=== PATIENT | female | born 1930 | race Caucasian/White ===

== ENCOUNTER 2016-09-04 10:16 | Day surgery (SDC) | payer MEDICARE, OTHER ==
[2016-08-23 10:55] LABS: HEMATOCRIT 40.1 % (36.0-47.0); HEMOGLOBIN 13.7 g/dL (12.0-15.5); MEAN CORPUSCULAR HEMOGLOBIN 31.3 pg (27.0-33.4); MEAN CORPUSCULAR HGB CONC 34.2 g/dL (32.0-36.0); MEAN CORPUSCULAR VOLUME 91 fl (80-97); RED BLOOD COUNT 4.39 10^6/uL (3.72-5.28); RED CELL DISTRIBUTION WIDTH 13.9 % (11.5-14.0); WHITE BLOOD COUNT 6.3 10^3/uL (4.0-10.5)
[2016-08-23 10:59] LABS: PROTHROMBIN TIME 12.6 SEC (11.4-15.4)
[2016-08-23 11:23] LABS: ANION GAP 13 (5-19); BLOOD UREA NITROGEN 14 mg/dL (7-20); CALCIUM 10.1 mg/dL (8.4-10.2); CARBON DIOXIDE 29 mmol/L (22-30); CHLORIDE 105 mmol/L (98-107); CREATININE RESULT 0.82 mg/dL (0.52-1.25); GLUCOSE 94 mg/dL (75-110); POTASSIUM 4.8 mmol/L (3.6-5.0); SODIUM 147.1 mmol/L (137-145)
--- NOTE | 2016-08-23 19:50 | EKG REPORT ---
SEVERITY:- ABNORMAL ECG - SINUS RHYTHM PROBABLE LEFT ATRIAL ABNORMALITY PROBABLE LEFT VENTRICULAR HYPERTROPHY : Confirmed by: Zen Montes MD 23-Aug-2016 19:50:13
[~2016-09-04 10:16] MED LIST: CEFAZOLIN 1 GM/D5W RTU 1 GM/50 ML RTUPB IV PRN; LIDOCAINE 0.5% INJ-PF (5 MG/ML) 50 ML SDV SUBCUT PRN; LIDOCAINE 2% INJ-PF (20 MG/ML) 10 ML AMPUL ONE; NORMAL SALINE 1000 ML (RENAL PATIENTS) IV PRN
[2016-09-04] MEDS ORDERED: SODIUM BICARBONATE 8.4% INJ 50 MEQ/50 ML DISP.SYRIN ONE (11:15)
[2016-09-04] MEDS ORDERED: LIDOCAINE 1%/EPINEPHRINE INJ 20 ML VIAL ONE (11:15)
[2016-09-04] MEDS ORDERED: MIDAZOLAM 2 MG/2 ML INJ ONE (12:50)
[2016-09-04] MEDS ORDERED: FENTANYL CITRATE INJ/PF 100 MCG/2 ML AMPUL ONE (12:50)
[2016-09-04] MEDS ORDERED: PROPOFOL INJ 200 MG/20 ML VIAL IV ONE (12:51)
[2016-09-04] MEDS ORDERED: EPHEDRINE SULFATE INJ 50 MG/1 ML AMPULE ONE (12:51)
[2016-09-04] MEDS ORDERED: DEXMEDETOMIDINE INJ 80 MCG/20 ML VIAL IV ONE (12:51)
[2016-09-04] MEDS ORDERED: PROMETHAZINE HCL INJ 25 MG/1 ML VIAL IV PRN ×2 (13:46)
[2016-09-04] MEDS ORDERED: OXYCODONE-ACETAMINOPHEN 5-325 MG TABLET PO PRN ×2 (13:46)
[2016-09-04] MEDS ORDERED: FENTANYL CITRATE INJ/PF 100 MCG/2 ML AMPUL IV PRN ×3 (13:46)
[2016-09-04] MEDS ORDERED: MEPERIDINE HCL/PF INJ 25 MG/1 ML DISP.SYRIN IV PRN (13:46)
[2016-09-04] MEDS ORDERED: DIPHENHYDRAMINE HCL 50 MG/ML VIAL IV PRN (13:46)
--- NOTE | 2016-09-04 14:46 | Operative Report ---
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 Margins were examined via frozen section SURGEON: QUINN NG ANESTHESIA: LMAC TISSUE REMOVED OR ALTERED: Squamous cell carcinoma of right lateral malleolus COMPLICATIONS: None ESTIMATED BLOOD LOSS: minimal PROCEDURE: Patient seen and was marked prior to being brought into the operating room. Patient was brought into the operating room and placed on the operating room table in a lateral decubitus position. Patient was then prepped with a Betadine scrub and Betadine solution and draped in a sterile and aseptic manner. The area was then marked. 12 O'clock was marked towards the knee 3 O'clock was marked towards the dorsal foot 6:00 was marked towards plantar foot 9:00 was marked towards Achilles tendon The area was then anesthetized with 1% lidocaine with epinephrine and bicarbonate for its anesthetic and hemostatic effects. The area was then excised and marked at 12:00. We had considered a primary closure but this would go against the natural relaxed skin tension lines. A primary closure would be too tight and would have increased chance of dehiscence. This will leave more of a scar so we decided to use a rotation flap reconstruction which would camouflage the scar better and take tension off of the closure so that would be less chances of complications. Then went ahead and outlined the flap and anesthetized it. Then incised the flap and developed a flap maintaining the subdermal plexus. Then we undermined 360 to allow for plate like scarring and minimize trap door deformity. Throughout the case hemostasis was achieved with the bipolar. Skin was closed with a interrupted horizontal mattress sutures stitch using [4- 0 Prolene] with knots being tied on the outside. We then applied tincture benzoin and Steri-Strips followed by a light pressure dressing with an Rodo wrap to support the foot and limit the amount of motion at the ankle joint to protect the flap. Patient was then reversed from anesthesia and taken to the [facility] for recovery. The patient tolerated well. There were no complications. Lesion size was approximately 1.2 x 1.5 cm please see pathology for actual size. Portions of this note may be dictated using [employer] voice recognition software. Occasional variations and spelling and vocabulary could be possible and are unintentional. Additionally, there is a chance that some errors may not be caught or corrected. Please notify the offer of any discrepancies noted or if any statements are unclear. Subjective: No complaints Objective: Vital signs stable afebrile No bleeding Dressing intact Assessment and plan: Doing well. Elevate the operative site. Resume medications. Take antibiotics for 1 day Follow-up Full instructions were given to the patient and family and they understand Portions of this note may be dictated using [employer] voice recognition software. Occasional variations and spelling and vocabulary could be possible and are unintentional. Additionally, there is a chance that some errors may not be caught or corrected. Please notify the offer of any discrepancies noted or if any statements are unclear.
--- NOTE | 2016-09-04 14:48 | PDOC DISCHARGE SUMMARY ---
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 Leave the steri-strip tapes on for 5 days, then removal. Then cleaning wound with peroxide and apply Neosporin/bacitracin 3 times per day. Antibiotics for 1 day, then discontinue. Elevate operative area to decrease swelling. Do not strain, or lift heavy objects. Call for excessive bleeding, increased temperature of 101, uncontrolled pain, or excessive nausea or vomiting. You may reach Dr. Torres through his office at [phone]. In the event of an emergency after hours, then contact Dr. Torres through [facility]. Return to the office for a postop check on . The time will be scheduled by the nursing staff of [facility] prior to discharge. Please give the patient a copy of their labs and EKG so they can bring this to their PMD. Thank you Portions of this note may be dictated using [employer] voice recognition software. Occasional variations and spelling and vocabulary could be possible and are unintentional. Additionally, there is a chance that some errors may not be caught or corrected. Please notify the offer of any discrepancies noted or if any statements are unclear. Discharge Diet: As Tolerated Discharge Activity: Keep Legs Elevated Report the Following to Your Physician Immediately: Unusual Bleeding, Redness, Swelling, Warmth
[2016-09-04 16:25] VITALS: BP 163/92
== END 2016-09-04 16:20 | disposition home or self-care (01) ==
LOC: OROUT 10:16
PROVIDERS: ATTEND Plastic Surgery
PROC: 0HBKXZZ Excision of Right Lower Leg Skin, External Approach (ICD-10-PCS; 2016-09-04)
PROC: 0HXKXZZ Transfer Right Lower Leg Skin, External Approach (ICD-10-PCS; principal; 2016-09-04 12:30)
DX: C44.722 Squamous cell carcinoma of skin of right lower limb, including hip (principal); I10 Essential (primary) hypertension; M19.90 Unspecified osteoarthritis, unspecified site; F17.210 Nicotine dependence, cigarettes, uncomplicated; Z96.642 Presence of left artificial hip joint; G43.909 Migraine, unspecified, not intractable, without status migrainosus; Z79.01 Long term (current) use of anticoagulants; Z88.5 Allergy status to narcotic agent; Z79.899 Other long term (current) drug therapy; Z79.891 Long term (current) use of opiate analgesic
CPT/HCPCS: 93005; 36415; 85027; 85610; 85730; 80048; 88305 ×2; 88331 ×2; 93010; 14020; J2250; J0690; J3490 ×3; J2704; 400; J3010

== ENCOUNTER 2017-04-16 10:55 | Day surgery (SDC) | payer MEDICARE, OTHER ==
[2017-03-26 12:12] LABS: HEMATOCRIT 41.3 % (36.0-47.0); HEMOGLOBIN 13.9 g/dL (12.0-15.5); HGB HCT DIFFERENCE 0.4; MEAN CORPUSCULAR HEMOGLOBIN 30.7 pg (27.0-33.4); MEAN CORPUSCULAR HGB CONC 33.7 g/dL (32.0-36.0); MEAN CORPUSCULAR VOLUME 91 fl (80-97); RED BLOOD COUNT 4.54 10^6/uL (3.72-5.28); RED CELL DISTRIBUTION WIDTH 14.4 % (11.5-14.0)
[2017-03-26 12:16] LABS: PROTHROMBIN TIME 12.7 SEC (11.4-15.4)
[2017-03-26 12:41] LABS: ANION GAP 13 (5-19); BLOOD UREA NITROGEN 20 mg/dL (7-20); CALCIUM 9.6 mg/dL (8.4-10.2); CARBON DIOXIDE 27 mmol/L (22-30); CHLORIDE 107 mmol/L (98-107); CREATININE RESULT 1.01 mg/dL (0.52-1.25); GLUCOSE 92 mg/dL (75-110); POTASSIUM 4.8 mmol/L (3.6-5.0); SODIUM 146.8 mmol/L (137-145)
--- NOTE | 2017-03-26 15:34 | EKG REPORT ---
SEVERITY:- ABNORMAL ECG - SINUS RHYTHM FIRST DEGREE AV BLOCK : Confirmed by: Nancy Mcintosh 26-Mar-2017 15:33:29
[~2017-04-16 10:55] MED LIST changes: +LACTATED RINGERS 1000 ML IV PRN; +LIDOCAINE 1%/EPINEPHRINE INJ 20 ML VIAL ONE; -LIDOCAINE 2% INJ-PF (20 MG/ML) 10 ML AMPUL ONE; -NORMAL SALINE 1000 ML (RENAL PATIENTS) IV PRN; +SODIUM BICARBONATE 8.4% INJ 50 MEQ/50 ML DISP.SYRIN ONE
[2017-04-16] MEDS ORDERED: MIDAZOLAM 2 MG/2 ML INJ ONE (13:49)
[2017-04-16] MEDS ORDERED: PROPOFOL INJ 200 MG/20 ML VIAL IV ONE (13:50)
[2017-04-16] MEDS ORDERED: DIPHENHYDRAMINE HCL 50 MG/ML VIAL IV PRN (14:34)
[2017-04-16] MEDS ORDERED: MEPERIDINE HCL/PF INJ 25 MG/1 ML DISP.SYRIN IV PRN (14:34)
[2017-04-16] MEDS ORDERED: FENTANYL CITRATE INJ/PF 100 MCG/2 ML AMPUL IV PRN ×3 (14:34)
[2017-04-16] MEDS ORDERED: PROMETHAZINE HCL INJ 25 MG/1 ML VIAL IV PRN ×2 (14:34)
--- NOTE | 2017-04-16 15:22 | Operative Report ---
Operative Report DATE OF SURGERY: 04/16/17 PREOPERATIVE DIAGNOSIS: Biopsy-proven squamous cell carcinoma in situ from the right lateral upper malleolus with positive lateral margins. POSTOPERATIVE DIAGNOSIS: Same OPERATION: Excision of squamous cell carcinoma of the right lateral upper malleolus with frozen section margin control and reconstruction with a O to S flap reconstruction SURGEON: QUINN NG ANESTHESIA: LMAC TISSUE REMOVED OR ALTERED: Squamous cell carcinoma COMPLICATIONS: None ESTIMATED BLOOD LOSS: Minimal PROCEDURE: Patient seen and was marked prior to being brought into the operating room. Patient was brought into the operating room and placed on the operating room table in a sloppy lateral decubitus position. Patient was then prepped with a Betadine scrub and Betadine solution and draped in a sterile and aseptic manner. The area was then marked. 12 O'clock was marked towards the knee 3 O'clock was marked towards the anterior ankle 6:00 was marked towards the sole of foot 9:00 was marked towards the Achilles tendon The area was then anesthetized with 1% lidocaine with epinephrine and bicarbonate for its anesthetic and hemostatic effects. The area was then excised and marked at 12:00. The specimen was sent for frozen section. The results came back that the deep and lateral margins were free. We had considered a primary closure but this would go against the natural relaxed skin tension lines. A primary closure would be too tight and would have increased chance of dehiscence. This will leave more of a scar so we decided to use a O to S flap reconstruction which would camouflage the scar better and take tension off of the closure so that would be less chances of complications. Then went ahead and outlined the flap and anesthetized it. Then incised the flap and developed a flap maintaining the subdermal plexus. Then we undermined 360 to allow for plate like scarring and minimize trap door deformity. Throughout the case hemostasis was achieved with the bipolar. We then sutured the flap into its new position using 4-0 Vicryl for the subcutaneous and deep dermis. Skin was closed with a running subcuticular suture stitch using 4-0 PDS with knots being tied on the outside. And 4-0 PDS suture was used for support and placed in the central area of the incision. We then applied tincture benzoin and Steri-Strips followed by a light pressure dressing. Patient was then reversed from anesthesia and taken to the [facility] for recovery. The patient tolerated well. There were no complications. Lesion size was approximately 1.8 cm x 0.9 cm please see pathology for actual size. Portions of this note may be dictated using [employer] voice recognition software. Occasional variations and spelling and vocabulary could be possible and are unintentional. Additionally, there is a chance that some errors may not be caught or corrected. Please notify the offer of any discrepancies noted or if any statements are unclear. Subjective: No complaints Objective: Vital signs stable afebrile No bleeding Dressing intact Assessment and plan: Doing well. Elevate the operative site. Resume medications. Take antibiotics for 1 day Follow-up Full instructions were given to the patient and family and they understand Portions of this note may be dictated using [employer] voice recognition software. Occasional variations and spelling and vocabulary could be possible and are unintentional. Additionally, there is a chance that some errors may not be caught or corrected. Please notify the offer of any discrepancies noted or if any statements are unclear.
--- NOTE | 2017-04-16 15:24 | PDOC DISCHARGE SUMMARY ---
Discharge Summary (SDC) - Discharge Final Diagnosis: Squamous cell carcinoma of the right lateral upper malleolus Date of Surgery: 04/16/17 Condition: Good Treatment or Instructions: Leave the top dressing on for 2 days, then removed. Leave the steri-strip tapes on for 5 days, then removal. Then cleaning wound with peroxide and apply Neosporin/bacitracin 3 times per day. Antibiotics for 1 day, then discontinue. Elevate operative area to decrease swelling. Do not strain, or lift heavy objects. Call for excessive bleeding, increased temperature of 101, uncontrolled pain, or excessive nausea or vomiting. You may reach Dr. Torres through his office at [phone]. In the event of an emergency after hours, then contact Dr. Torres through [facility]. Return to the office for a postop check on . The time will be scheduled by the nursing staff of [facility] prior to discharge. Please give the patient a copy of their labs and EKG so they can bring this to their PMD. Thank you Portions of this note may be dictated using [employer] voice recognition software. Occasional variations and spelling and vocabulary could be possible and are unintentional. Additionally, there is a chance that some errors may not be caught or corrected. Please notify the offer of any discrepancies noted or if any statements are unclear. Referrals: DHRUV JAMES MD [Primary Care Provider] - Discharge Diet: As Tolerated Report the Following to Your Physician Immediately: Unusual Bleeding - Keep leg elevated. Minimize flexion extension of the ankle. Monitor capillary refill in the toes. If the bandage gets too loose please tighten it. If the bandage gets too tight please loosen it.
[2017-04-16 18:35] VITALS: BP 123/73
== END 2017-04-16 17:25 | disposition home or self-care (01) ==
LOC: OROUT 10:55
PROVIDERS: ATTEND Plastic Surgery
PROC: 0HBHXZZ Excision of Right Upper Leg Skin, External Approach (ICD-10-PCS; 2017-04-16)
PROC: 0HXHXZZ Transfer Right Upper Leg Skin, External Approach (ICD-10-PCS; principal; 2017-04-16 13:00)
DX: C44.722 Squamous cell carcinoma of skin of right lower limb, including hip (principal); L57.0 Actinic keratosis; R06.02 Shortness of breath; I10 Essential (primary) hypertension; M19.90 Unspecified osteoarthritis, unspecified site; G43.009 Migraine without aura, not intractable, without status migrainosus; Z79.01 Long term (current) use of anticoagulants; Z88.5 Allergy status to narcotic agent; Z87.440 Personal history of urinary (tract) infections; Z88.8 Allergy status to other drugs, medicaments and biological substances; Z79.899 Other long term (current) drug therapy
CPT/HCPCS: 93005; 36415; 85027; 85610; 85730; 80048; 88305 ×2; 88331 ×2; 93010; 14020; J2250; J0690; J3490 ×2; J2704; 400

== ENCOUNTER 2018-02-25 08:30 | Day surgery (SDC) | payer MEDICARE, OTHER ==
[2018-02-21 12:50] LABS: HEMATOCRIT 40.7 % (36.0-47.0); HEMOGLOBIN 13.7 g/dL (12.0-15.5); MEAN CORPUSCULAR HEMOGLOBIN 30.7 pg (27.0-33.4); MEAN CORPUSCULAR HGB CONC 33.7 g/dL (32.0-36.0); MEAN CORPUSCULAR VOLUME 91 fl (80-97); PLATELET COUNT 274 10^3/uL (150-450); RED BLOOD COUNT 4.47 10^6/uL (3.72-5.28); RED CELL DISTRIBUTION WIDTH 14.7 % (11.5-14.0); WHITE BLOOD COUNT 7.4 10^3/uL (4.0-10.5)
[2018-02-21 13:11] LABS: INTERNATIONAL RATION (INR) 0.91; PROTHROMBIN TIME 12.7 SEC (11.4-15.4)
[2018-02-21 13:12] LABS: ANION GAP 12 (5-19); BLOOD UREA NITROGEN 19 mg/dL (7-20); CALCIUM 10.3 mg/dL (8.4-10.2); CARBON DIOXIDE 28 mmol/L (22-30); CHLORIDE 105 mmol/L (98-107); GLUCOSE 102 mg/dL (75-110); PARTIAL THROMBOPLASTIN TIME 32.4 SEC (23.5-35.8); POTASSIUM 5.1 mmol/L (3.6-5.0); SODIUM 144.7 mmol/L (137-145)
--- NOTE | 2018-02-21 22:41 | EKG REPORT ---
SEVERITY:- ABNORMAL ECG - SINUS RHYTHM FIRST DEGREE AV BLOCK : Confirmed by: Julia Pete MD 21-Feb-2018 22:39:48
[~2018-02-25 08:30] MED LIST changes: +CEFAZOLIN 1 GM/D5W RTU 1 GM/50 ML RTUPB IV ONE; -LACTATED RINGERS 1000 ML IV PRN; -LIDOCAINE 0.5% INJ-PF (5 MG/ML) 50 ML SDV SUBCUT PRN; -LIDOCAINE 1%/EPINEPHRINE INJ 20 ML VIAL ONE; -SODIUM BICARBONATE 8.4% INJ 50 MEQ/50 ML DISP.SYRIN ONE
[2018-02-25] MEDS ORDERED: LIDOCAINE 1%/EPINEPHRINE INJ 20 ML VIAL ONE (09:36)
[2018-02-25] MEDS ORDERED: SODIUM BICARBONATE 8.4% INJ 50 MEQ/50 ML DISP.SYRIN ONE (09:36)
[2018-02-25] MEDS ORDERED: POVIDONE-IODINE 5% OPH PREP SOLN 30 ML ONE (09:37)
[2018-02-25] MEDS ORDERED: PROPOFOL INJ 200 MG/20 ML VIAL IV ONE (09:46)
[2018-02-25] MEDS ORDERED: LIDOCAINE 2% INJ-PF (20 MG/ML) 10 ML AMPUL ONE (09:46)
[2018-02-25] MEDS ORDERED: MIDAZOLAM 2 MG/2 ML INJ ONE (09:46)
[2018-02-25] MEDS ORDERED: FENTANYL CITRATE INJ/PF 100 MCG/2 ML AMPUL ONE (09:46)
[2018-02-25] MEDS ORDERED: PROMETHAZINE HCL INJ 25 MG/1 ML VIAL IV PRN (10:40)
[2018-02-25] MEDS ORDERED: DIPHENHYDRAMINE HCL 50 MG/ML VIAL IV PRN (10:40)
[2018-02-25] MEDS ORDERED: FENTANYL CITRATE INJ/PF 100 MCG/2 ML AMPUL IV PRN ×2 (10:40)
[2018-02-25] MEDS ORDERED: ONDANSETRON HCL INJ/PF 4 MG/2 ML SDV IV PRN (10:40)
--- NOTE | 2018-02-25 11:27 | Operative Report ---
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 Patient was brought into the operating room and placed on the operating room table in a sloppy lateral position. Patient was then prepped with a Betadine scrub and Betadine solution and draped in a sterile and aseptic manner. The area was then marked. 12 O'clock was marked towards the anterior neck 3 O'clock was marked towards the hairline 6:00 was marked towards the midline posterior neck 9:00 was marked towards the shoulder The area was then anesthetized with 1% lidocaine with epinephrine and bicarbonate for its anesthetic and hemostatic effects. The area was then excised and marked at 12:00. The specimen was sent for frozen section. The results came back that the deep and lateral margins were free. We had considered a primary closure but this would go against the natural relaxed skin tension lines. A primary closure would be too tight and would have increased chance of dehiscence. This will leave more of a scar so we decided to use a rotation flap reconstruction which would camouflage the scar better and take tension off of the closure so that would be less chances of complications. It was felt with the choice of the rotation flap this will allow us to align the reconstruction close to the relaxed skin tension lines of the neck. This would also allow us to use some of the neck skin for the flap to bring it down into the area for the reconstruction so it would be tension-free. This will camouflage the reconstruction better than other choices. Then we went ahead and outlined the flap and anesthetized it. We then incised the flap and developed a flap maintaining the subdermal plexus. Then we undermined 360 to allow for plate like scarring and minimize trap door deformity. Throughout the case hemostasis was achieved with the bipolar. We then sutured the flap into its new position using 4-0 Vicryl for the subcutaneous and deep dermis. Skin was closed with a running subcuticular suture stitch using 4-0 PDS with knots being tied on the outside. And 4-0 PDS suture was used for support and placed in the central area of the incision. We then applied tincture benzoin and Steri-Strips followed by a light pressure dressing. Patient was then reversed from anesthesia and taken to the [facility] for recovery. The patient tolerated well. There were no complications. Lesion size was approximately 1.5 cm please see pathology for actual size. Portions of this note may be dictated using [employer] voice recognition software. Occasional variations and spelling and vocabulary could be possible and are unintentional. Additionally, there is a chance that some errors may not be caught or corrected. Please notify the author of any discrepancies noted or if any statements are unclear. Subjective: No complaints Objective: Vital signs stable afebrile No bleeding Dressing intact Assessment and plan: Doing well. Elevate the operative site. Resume medications. Take antibiotics for 1 day Follow-up Full instructions were given to the patient and family and they understand Portions of this note may be dictated using [employer] voice recognition software. Occasional variations and spelling and vocabulary could be possible and are unintentional. Additionally, there is a chance that some errors may not be caught or corrected. Please notify the offer of any discrepancies noted or if any statements are unclear.
--- NOTE | 2018-02-25 11:28 | Discharge Summary ---
Discharge Summary (SDC) - Discharge Final Diagnosis: Basal cell carcinoma of the left posterior neck Date of Surgery: 02/25/18 Condition: Good Treatment or Instructions: Leave the top dressing on for 2 days, then removed. Leave the steri-strip tapes on for 5 days, then removal. Then cleaning wound with peroxide and apply Neosporin/bacitracin 3 times per day. Antibiotics for 1 day, then discontinue. Elevate operative area to decrease swelling. Do not strain, or lift heavy objects. Call for excessive bleeding, increased temperature of 101, uncontrolled pain, or excessive nausea or vomiting. You may reach Dr. Torres through his office at [phone]. In the event of an emergency after hours, then contact Dr. Torres through [facility]. Return to the office for a postop check on . The time will be scheduled by the nursing staff of [facility] prior to discharge. Please give the patient a copy of their labs and EKG so they can bring this to their PMD. Thank you Portions of this note may be dictated using [employer] voice recognition software. Occasional variations and spelling and vocabulary could be possible and are unintentional. Additionally, there is a chance that some errors may not be caught or corrected. Please notify the offer of any discrepancies noted or if any statements are unclear. Referrals: LARRY MOYA MD [Primary Care Provider] - Discharge Diet: As Tolerated Report the Following to Your Physician Immediately: Unusual Bleeding - Keep head and torso elevated. Do not rotate the neck. Do not do any excessive reaching or bending.
[2018-02-25 13:52] VITALS: BP 166/80
== END 2018-02-25 13:00 | disposition home or self-care (01) ==
LOC: OROUT 08:30
PROVIDERS: ATTEND Plastic Surgery
DX: C44.41 Basal cell carcinoma of skin of scalp and neck (principal); M19.90 Unspecified osteoarthritis, unspecified site; I12.9 Hypertensive chronic kidney disease with stage 1 through stage 4 chronic kidney disease, or unspecified chronic kidney disease; N18.4 Chronic kidney disease, stage 4 (severe); G43.909 Migraine, unspecified, not intractable, without status migrainosus; Z79.899 Other long term (current) drug therapy; Z79.01 Long term (current) use of anticoagulants; Z87.440 Personal history of urinary (tract) infections; Z86.718 Personal history of other venous thrombosis and embolism
CPT/HCPCS: 93005; 36415 ×2; 84132; 85027; 85610; 85730; 80048; 88305 ×2; 88331 ×2; 93010; 14040; J2250; J0690; J3010; J3490 ×3; J2704; 300

== ENCOUNTER → 2019-06-02 | Outpatient (CLI) | payer MEDICARE, OTHER ==
[2019-06-02 10:40] LABS: ABSOLUTE EOSINOPHILS # (AUTO) 0.4 10^3/uL (0.0-0.6); ABSOLUTE LYMPHOCYTES (AUTO) 1.3 10^3/uL (0.5-4.7); ABSOLUTE MONOCYTES (AUTO) 0.6 10^3/uL (0.1-1.4); ABSOLUTE NEUT (AUTO) 4.7 10^3/uL (1.7-8.2); BASOPHILS % (AUTO) 0.5 % (0-2); EOSINOPHILS % (AUTO) 5.9 % (0-6); HEMATOCRIT 43.4 % (36.0-47.0); HEMOGLOBIN 14.4 g/dL (12.0-15.5); LYMPHOCYTES % (AUTO) 18.8 % (13-45); MEAN CORPUSCULAR HEMOGLOBIN 30.6 pg (27.0-33.4); MEAN CORPUSCULAR HGB CONC 33.2 g/dL (32.0-36.0); MEAN CORPUSCULAR VOLUME 92 fl (80-97); PLATELET COUNT 270 10^3/uL (150-450); RED BLOOD COUNT 4.71 10^6/uL (3.72-5.28); RED CELL DISTRIBUTION WIDTH 14.6 % (11.5-14.0); SEGMENTED NEUTROPHILS % (AUTO) 65.8 % (42-78); TOTAL CELLS COUNTED % (AUTO) 100 %; WHITE BLOOD COUNT 7.1 10^3/uL (4.0-10.5)
[2019-06-02 11:02] LABS: APPEARANCE,URINE CLEAR; BILIRUBIN,URINE NEGATIVE (NEGATIVE); COLOR,URINE YELLOW; GLUCOSE, URINE NEGATIVE (NEGATIVE); KETONES,URINE NEGATIVE (NEGATIVE); LEUKOCYTE ESTERASE,URINE MODERATE (NEGATIVE); NITRITE,URINE NEGATIVE (NEGATIVE); PROTEIN,URINE 30 mg/dL (NEGATIVE); UROBILINOGEN,URINE NEGATIVE mg/dL (<2.0)
[2019-06-02 11:06] LABS: ANION GAP 8 (5-19); BLOOD UREA NITROGEN 17 mg/dL (7-20); CARBON DIOXIDE 32 mmol/L (22-30); CHLORIDE 104 mmol/L (98-107); GLUCOSE 86 mg/dL (75-110); POTASSIUM 4.5 mmol/L (3.6-5.0)
--- NOTE | 2019-06-02 13:56 | EKG REPORT ---
SEVERITY:- ABNORMAL ECG - SINUS RHYTHM FIRST DEGREE AV BLOCK : Confirmed by: Zen Montes MD 02-Jun-2019 13:55:47
--- NOTE | 2019-06-02 15:54 | RADIOLOGY REPORT (SQ) ---
EXAM DESCRIPTION: CHEST PA/LATERAL COMPLETED DATE/TIME: 06/02/2019 10:35 am REASON FOR STUDY: PRE-OP COMPARISON: 07/20/2015 EXAM PARAMETERS: NUMBER OF VIEWS: two views TECHNIQUE: Digital Frontal and Lateral radiographic views of the chest acquired. RADIATION DOSE: NA LIMITATIONS: none FINDINGS: LUNGS AND PLEURA: No opacities, masses or pneumothorax. No pleural effusion. MEDIASTINUM AND HILAR STRUCTURES: No masses or contour abnormalities. HEART AND VASCULAR STRUCTURES: Heart normal size. No evidence for failure. BONES: No acute findings. HARDWARE: None in the chest. OTHER: No other significant finding. IMPRESSION: NO SIGNIFICANT RADIOGRAPHIC FINDING IN THE CHEST. TECHNICAL DOCUMENTATION: JOB ID: [id number] [employer]- All Rights Reserved Reading location - IP/workstation name: [email or web address]
== END ==
LOC: OD 10:01
PROVIDERS: ATTEND Orthopaedic Surgery
DX: Z01.810 Encounter for preprocedural cardiovascular examination (principal); Z01.811 Encounter for preprocedural respiratory examination; Z01.812 Encounter for preprocedural laboratory examination; M16.11 Unilateral primary osteoarthritis, right hip
CPT/HCPCS: 36415; 71046; 80048; 81001; 85025; 93005; 93010

== ENCOUNTER 2019-06-22 08:02 | Inpatient (IN) | payer MEDICARE, OTHER ==
[~2019-06-22 08:02] MED LIST changes: +BUPIVACAINE INJ/PF LIPOSOME/PF 266 MG/20 ML SDV INJ PRN; -CEFAZOLIN 1 GM/D5W RTU 1 GM/50 ML RTUPB IV ONE; -CEFAZOLIN 1 GM/D5W RTU 1 GM/50 ML RTUPB IV PRN; +CEFAZOLIN INJ 1 GM VIAL IV PRN; +IBUPROFEN 800 MG in NORMAL SALINE 250 ML IV PRN; +LACTATED RINGERS 1000 ML IV PRN; +LIDOCAINE 0.5% INJ-PF (5 MG/ML) 50 ML SDV SUBCUT PRN; +OXYCODONE HCL SR 10 MG TABLET PO PRN; +PANTOPRAZOLE SODIUM 20 MG TABLET.DR PO PRN; +RINGERS SOLUTION,LACTATED 125 ML IV PRN; +VANCOMYCIN HCL 1,000 MG in DEXTROSE 5%-WATER 250 ML IV PRN
[2019-06-22] MEDS ORDERED: CEFAZOLIN INJ 1 GM VIAL ONE (08:42)
[2019-06-22] MEDS ORDERED: OXYCODONE HCL SR 10 MG TABLET PO ONE (08:42)
[2019-06-22] MEDS ORDERED: PANTOPRAZOLE SODIUM 20 MG TABLET.DR PO ONE (08:42)
[2019-06-22] MEDS ORDERED: BUPIVACAINE INJ/PF LIPOSOME/PF 266 MG/20 ML SDV ONE (09:31)
[2019-06-22] MEDS ORDERED: EPHEDRINE SULFATE INJ 50 MG/1 ML AMPULE ONE (09:51)
[2019-06-22] MEDS ORDERED: PROPOFOL INJ 200 MG/20 ML VIAL IV ONE (09:51)
[2019-06-22] MEDS ORDERED: LIDOCAINE 2% INJ-PF (20 MG/ML) 10 ML AMPUL ONE (09:51)
[2019-06-22] MEDS ORDERED: FENTANYL CITRATE INJ/PF 100 MCG/2 ML AMPUL ONE (09:51)
[2019-06-22] MEDS ORDERED: MIDAZOLAM 2 MG/2 ML INJ ONE (09:51)
[2019-06-22] MEDS ORDERED: ONDANSETRON HCL INJ/PF 4 MG/2 ML SDV ONE (09:51)
[2019-06-22] MEDS ORDERED: TRANEXAMIC ACID INJ/PF 1,000 MG/10 ML SDV ONE (09:52)
[2019-06-22] MEDS ORDERED: FENTANYL CITRATE INJ/PF 100 MCG/2 ML AMPUL IV PRN ×3 (11:13)
[2019-06-22] MEDS ORDERED: DIPHENHYDRAMINE HCL 50 MG/ML VIAL IV PRN ×2 (11:13→11:41)
[2019-06-22] MEDS ORDERED: ONDANSETRON HCL INJ/PF 4 MG/2 ML SDV IV PRN ×2 (11:13→11:41)
[2019-06-22] MEDS ORDERED: MEPERIDINE HCL/PF INJ 25 MG/1 ML DISP.SYRIN IV PRN (11:13)
[2019-06-22] MEDS ORDERED: PROMETHAZINE HCL INJ 25 MG/1 ML VIAL IV PRN ×2 (11:13)
--- NOTE | 2019-06-22 11:40 | Operative Report ---
Operative Report DATE OF SURGERY: 06/22/19 PREOPERATIVE DIAGNOSIS: Right hip arthritis OPERATION: Right hip arthroplasty SURGEON: CAROL RAY ANESTHESIA: Spinal TISSUE REMOVED OR ALTERED: Femoral head to pathology ESTIMATED BLOOD LOSS: 75 PROCEDURE: Implants used: Femur: Anderson Accolade 2 stem, size 5 Acetabular shell: 52 mm hemispherical shell Liner: 36 mm flat cross-link polyethylene liner Head: 36 mm chrome cobalt head -5 neck The patient is placed in a left lateral decubitus position on the operating table. The right lower extremity and hindquarter is prepped and draped in a sterile fashion. A curvilinear incision was made over the greater trochanter a posterior approach the hip was taken. The femoral head is dislocated and the femoral neck transected using an oscillating saw. Attention was next turned to the acetabulum. Soft tissues cleared off the acetabulum using electrocautery. The acetabulum was then prepared using a series of hemispherical reamers until a 52 millimeters reamer is seated. Subsequently a 52 millimeters Anderson titanium hemispherical shell is impacted into position. A standard flat 36 millimeters cross-link liner is impacted into the shell. Attention was next turned to the femur. Access is gained to the femoral canal using a box osteotome to the piriformis fossa. The femur is then prepared using a series of broaches until a number 5 broach is seated. A trial reduction was now performed using a 36 millimeters head with and is 5 neck. Preoperative leg length was recreated and is excellent anterior posterior stability. A decision was made to proceed with the above construct. All trial implants were removed. The wound is irrigated with pulsed lavage. A number 5 stem is impacted into the femoral canal. A trial reduction was again performed with a 36 mm head and a -5 neck. Findings as previously. The hip was dislocated one last time and the final chrome-cobalt head is impacted onto the trunnion. The hip was reduced. Wound is copiously irrigated with pulsed lavage. Sent closed in layers using interrupted Vicryl followed by lloyd. A sterile dressing is applied and the patient's returned to recovery room in satisfactory patient.
[2019-06-22] MEDS ORDERED: ONDANSETRON 4 MG TAB.RAPDIS PO PRN (11:41)
[2019-06-22] MEDS ORDERED: RINGERS SOLUTION,LACTATED 1,000 ML IV PRN (11:41)
[2019-06-22] MEDS ORDERED: MAG HYDROX/AL HYDROX/SIMETH SUSP 30 ML UDCUP PO PRN (11:41)
--- NOTE | 2019-06-22 13:04 | RADIOLOGY REPORT (SQ) ---
EXAM DESCRIPTION: PELVIS AP COMPLETED DATE/TIME: 06/22/2019 12:53 pm REASON FOR STUDY: Post Op Long Cassette in PACU M16.11 UNILATERAL PRIMARY OSTEOARTHRITIS, RIGHT HI P COMPARISON: None. NUMBER OF VIEWS: One view TECHNIQUE: AP Pelvis LIMITATIONS: None. FINDINGS: MINERALIZATION: Normal. HIPS: Status post right ORTIZ. The hardware is in anatomic alignment. There is a focal area of cortic al thickening along the medial aspect of the femoral stem of the left ORTIZ that could represent a negrita prosthetic fracture. PELVIS AND SACRUM: The sacrum is obscured by overlying bowel. PUBIS AND ISCHIUM: The ilioischial iliopectineal lines are intact. There is no diastasis of the pubi c symphysis. LOWER LUMBAR SPINE: Degenerative findings. SOFT TISSUES: Subcutaneous emphysema lateral to the right femur. OTHER: No other finding. IMPRESSION: 1. Uncomplicated right ORTIZ with expected immediate postoperative findings. 2. Focal area of cortical thickening along the medial aspect of the femoral stem of the left ORTIZ that could represent a periprosthetic fracture. COMMENT: Pelvic fractures are often occult on plain radiographs. If strong clinical suspicion for f racture, recommend CT or MR. TECHNICAL DOCUMENTATION: JOB ID: [id number] [employer]- All Rights Reserved Reading location - IP/workstation name: [email or web address]
[2019-06-22] MEDS ORDERED: TRANEXAMIC ACID INJ/PF 1,000 MG/10 ML SDV IV ONE (15:00)
[2019-06-22] MEDS: SENNOSIDES/DOCUSATE 8.6-50 MG 1 EACH TABLET PO SCH (17:35)
[2019-06-22] MEDS: ASPIRIN 81 MG TABLET, ENT COATED PO SCH (17:35)
[2019-06-22] MEDS: IBUPROFEN 800 MG in NORMAL SALINE 250 ML IV SCH (17:36)
[2019-06-22] MEDS: BUPROPION HCL 75 MG TABLET PO SCH (22:03)
[2019-06-22] MEDS: SIMVASTATIN 10 MG TABLET PO SCH (22:03)
[2019-06-22] MEDS: METOPROLOL TARTRATE 25 MG TABLET PO SCH (22:04)
[2019-06-22] MEDS: OXYCODONE HCL SR 10 MG TABLET PO SCH (22:04)
[2019-06-22] MEDS: ZOLPIDEM TARTRATE 5 MG TABLET PO PRN (22:11)
[2019-06-22] MEDS ORDERED: VANCOMYCIN HCL 1,000 MG in DEXTROSE 5%-WATER 250 ML IV ONE (23:30)
[2019-06-23] MEDS: OXYCODONE HCL IR 5 MG TABLET PO PRN ×2 (00:47→17:26)
[2019-06-23] MEDS: IBUPROFEN 800 MG in NORMAL SALINE 250 ML IV SCH ×3 (01:32→17:26)
[2019-06-23] MEDS: PANTOPRAZOLE SODIUM 40 MG TABLET.DR PO SCH (06:24)
[2019-06-23 06:31] LABS: HEMOGLOBIN 12.6 g/dL (12.0-15.5); MEAN CORPUSCULAR HGB CONC 34.1 g/dL (32.0-36.0); MEAN CORPUSCULAR VOLUME 91 fl (80-97); PLATELET COUNT 212 10^3/uL (150-450); RED BLOOD COUNT 4.06 10^6/uL (3.72-5.28); WHITE BLOOD COUNT 7.6 10^3/uL (4.0-10.5)
[2019-06-23 06:48] LABS: ANION GAP 8 (5-19); BLOOD UREA NITROGEN 13 mg/dL (7-20); CALCIUM 8.5 mg/dL (8.4-10.2); CARBON DIOXIDE 25 mmol/L (22-30); CHLORIDE 106 mmol/L (98-107); GLUCOSE 110 mg/dL (75-110); POTASSIUM 3.9 mmol/L (3.6-5.0)
--- NOTE | 2019-06-23 07:04 | PDOC PROGRESS REPORT ---
Subjective Progress Note for:: 06/23/19 Reason For Visit: M16.11 UNILATERAL PRIMARY OSTEOARTHRITIS, RIGHT HI 89-year-old white female now postop day 1 status post right hip arthroplasty. Uneventful postoperative course thus far. Physical Exam Vital Signs: Temp Pulse Resp BP Pulse Ox 36.8 C 80 16 133/72 H 99 06/23/19 00:35 06/23/19 00:35 06/23/19 00:35 06/23/19 00:35 06/23/19 00:35 Intake & Output 06/22/19 06/23/19 06/24/19 06:59 06:59 06:59 Intake Total 2930 Output Total 700 Balance 2230 General appearance: PRESENT: no acute distress, mild distress Head exam: PRESENT: normocephalic Respiratory exam: PRESENT: unlabored Cardiovascular exam: PRESENT: RRR Vascular exam: PRESENT: normal capillary refill Extremities exam: PRESENT: other - Left hip OpSite dressing clean dry and intact. Leg lengths are equal. Distal neurovascular examination is intact. Results Laboratory Results: 06/23/19 06:14 06/23/19 06:14 06/22/19 06/22/19 06/23/19 08:40 08:40 06:14 WBC 7.6 RBC 4.06 Hgb 12.6 Hct 37.0 MCV 91 MCH 31.0 MCHC 34.1 RDW 14.0 Plt Count 212 Sodium Potassium 4.2 Chloride Carbon Dioxide Anion Gap BUN Creatinine Est GFR ( Amer) Glucose Calcium Blood Type O POSITIVE Antibody Screen NEGATIVE 06/23/19 06:14 WBC RBC Hgb Hct MCV MCH MCHC RDW Plt Count Sodium 139.4 Potassium 3.9 Chloride 106 Carbon Dioxide 25 Anion Gap 8 BUN 13 Creatinine 0.83 Est GFR ( Amer) > 60 Glucose 110 Calcium 8.5 Blood Type Antibody Screen Impressions: Pelvis X-Ray 06/22/19 11:42 IMPRESSION: 1. Uncomplicated right ORTIZ with expected immediate postoperative findings. 2. Focal area of cortical thickening along the medial aspect of the femoral stem of the left ORTIZ that could represent a periprosthetic fracture. Status: Imported from PACS Assessment & Plan - Diagnosis (1) Arthritis of right hip Is this a current diagnosis for this admission?: Yes Plan: Mobilized with physical therapy and weightbearing as tolerated basis - Time Time Spent with patient: 15-24 minutes Anticipated discharge: SNF Within: within 48 hours
[2019-06-23] MEDS ORDERED: (PENDING PHARMACY ID) (Lisinopril [Lisinopril] 20 MG) PO SCH (08:00)
[2019-06-23] MEDS: SERTRALINE HCL 50 MG TABLET PO SCH (09:17)
[2019-06-23] MEDS: OXYCODONE HCL SR 10 MG TABLET PO SCH ×2 (09:17→21:48)
[2019-06-23] MEDS: PRENATAL VITAMIN W DHA CAPSULE PO SCH (09:18)
[2019-06-23] MEDS: LISINOPRIL 10 MG TABLET PO SCH (09:18)
[2019-06-23] MEDS: ASPIRIN 81 MG TABLET, ENT COATED PO SCH (09:18)
[2019-06-23] MEDS: METOPROLOL TARTRATE 25 MG TABLET PO SCH ×2 (09:18→21:47)
[2019-06-23] MEDS: AMLODIPINE BESYLATE 10 MG TABLET PO SCH (09:18)
[2019-06-23] MEDS: BUPROPION HCL 75 MG TABLET PO SCH ×2 (09:19→21:47)
[2019-06-23] MEDS: SENNOSIDES/DOCUSATE 8.6-50 MG 1 EACH TABLET PO SCH ×2 (09:19→17:26)
[2019-06-23] MEDS: ALLOPURINOL 300 MG TABLET PO SCH (09:19)
[2019-06-23] MEDS ORDERED: MAGNESIUM HYDROXIDE SUSP 30 ML UDCUP PO PRN (19:30)
[2019-06-23] MEDS: SIMVASTATIN 10 MG TABLET PO SCH (21:47)
[2019-06-24] MEDS: IBUPROFEN 800 MG in NORMAL SALINE 250 ML IV SCH ×2 (02:08→09:54)
[2019-06-24 06:25] LABS: HEMATOCRIT 33.8 % (36.0-47.0); HEMOGLOBIN 11.9 g/dL (12.0-15.5); MEAN CORPUSCULAR HEMOGLOBIN 32.1 pg (27.0-33.4); MEAN CORPUSCULAR HGB CONC 35.3 g/dL (32.0-36.0); MEAN CORPUSCULAR VOLUME 91 fl (80-97); PLATELET COUNT 200 10^3/uL (150-450); RED BLOOD COUNT 3.73 10^6/uL (3.72-5.28); RED CELL DISTRIBUTION WIDTH 14.3 % (11.5-14.0); WHITE BLOOD COUNT 8.8 10^3/uL (4.0-10.5)
[2019-06-24] MEDS: PANTOPRAZOLE SODIUM 40 MG TABLET.DR PO SCH (06:37)
--- NOTE | 2019-06-24 07:11 | PDOC PROGRESS REPORT ---
Subjective Progress Note for:: 06/24/19 Reason For Visit: M16.11 UNILATERAL PRIMARY OSTEOARTHRITIS, RIGHT HI 89-year-old white female now postop day 2 status post right hip arthroplasty with an uneventful postoperative course but limited progress with physical therapy. Physical Exam Vital Signs: Temp Pulse Resp BP Pulse Ox 36.9 C 81 16 132/67 H 93 06/24/19 00:14 06/24/19 00:14 06/24/19 00:14 06/24/19 00:14 06/24/19 00:14 Intake & Output 06/23/19 06/24/19 06/25/19 06:59 06:59 06:59 Intake Total 2930 2334 Output Total 1900 1450 Balance 1030 884 Weight 80.3 kg 80.4 kg General appearance: PRESENT: no acute distress, mild distress Head exam: PRESENT: normocephalic Respiratory exam: PRESENT: unlabored Cardiovascular exam: PRESENT: RRR Pulses: PRESENT: +1 pedal pulses bilateral Vascular exam: PRESENT: normal capillary refill GI/Abdominal exam: PRESENT: soft Rectal exam: PRESENT: deferred Extremities exam: PRESENT: other - Right hip dressing clean dry and intact. Leg lengths are equal. Distal neurovascular examination is intact. Neurological exam: PRESENT: alert, awake, oriented to person, oriented to place, oriented to time, oriented to situation. ABSENT: motor sensory deficit Skin exam: PRESENT: dry, intact, warm. ABSENT: cyanosis, rash Results Laboratory Results: 06/24/19 05:55 06/23/19 06:14 06/24/19 05:55 WBC 8.8 RBC 3.73 Hgb 11.9 L Hct 33.8 L MCV 91 MCH 32.1 MCHC 35.3 RDW 14.3 H Plt Count 200 Impressions: Pelvis X-Ray 06/22/19 11:42 IMPRESSION: 1. Uncomplicated right ORTIZ with expected immediate postoperative findings. 2. Focal area of cortical thickening along the medial aspect of the femoral stem of the left ORTIZ that could represent a periprosthetic fracture. Status: Imported from PACS Assessment & Plan - Diagnosis (1) Arthritis of right hip Is this a current diagnosis for this admission?: Yes Plan: Continue physical therapy for weightbearing as taught ambulation. Anticipate discharge to [facility] nursing facility tomorrow. - Time Time Spent with patient: 15-24 minutes Anticipated discharge: SNF Within: within 24 hours
[2019-06-24] MEDS: OXYCODONE HCL IR 5 MG TABLET PO PRN ×3 (08:07→22:29)
[2019-06-24] MEDS: AMLODIPINE BESYLATE 10 MG TABLET PO SCH (09:52)
[2019-06-24] MEDS: LISINOPRIL 10 MG TABLET PO SCH (09:52)
[2019-06-24] MEDS: OXYCODONE HCL SR 10 MG TABLET PO SCH (09:52)
[2019-06-24] MEDS: METOPROLOL TARTRATE 25 MG TABLET PO SCH ×2 (09:53→21:35)
[2019-06-24] MEDS: PRENATAL VITAMIN W DHA CAPSULE PO SCH (09:53)
[2019-06-24] MEDS: ALLOPURINOL 300 MG TABLET PO SCH (09:53)
[2019-06-24] MEDS: ASPIRIN 81 MG TABLET, ENT COATED PO SCH (09:53)
[2019-06-24] MEDS: SERTRALINE HCL 50 MG TABLET PO SCH (09:53)
[2019-06-24] MEDS: SENNOSIDES/DOCUSATE 8.6-50 MG 1 EACH TABLET PO SCH ×2 (09:53→17:24)
[2019-06-24] MEDS: BUPROPION HCL 75 MG TABLET PO SCH ×2 (09:54→21:37)
[2019-06-24] MEDS: SIMVASTATIN 10 MG TABLET PO SCH (21:35)
[2019-06-24] MEDS: ZOLPIDEM TARTRATE 5 MG TABLET PO PRN (23:30)
[2019-06-24] MEDS: ACETAMINOPHEN 325 MG TABLET PO PRN (23:31)
[2019-06-25] MEDS: OXYCODONE HCL IR 5 MG TABLET PO PRN ×2 (06:02→14:07)
[2019-06-25] MEDS: PANTOPRAZOLE SODIUM 40 MG TABLET.DR PO SCH (06:03)
[2019-06-25 06:16] LABS: HEMATOCRIT 34.6 % (36.0-47.0); MEAN CORPUSCULAR HEMOGLOBIN 31.6 pg (27.0-33.4); MEAN CORPUSCULAR HGB CONC 34.7 g/dL (32.0-36.0); MEAN CORPUSCULAR VOLUME 91 fl (80-97); PLATELET COUNT 215 10^3/uL (150-450); RED BLOOD COUNT 3.81 10^6/uL (3.72-5.28); WHITE BLOOD COUNT 9.2 10^3/uL (4.0-10.5)
--- NOTE | 2019-06-25 07:06 | PDOC PROGRESS REPORT ---
Subjective Progress Note for:: 06/25/19 Reason For Visit: M16.11 UNILATERAL PRIMARY OSTEOARTHRITIS, RIGHT HI 89-year-old white female now postop day 3 status post right hip arthroplasty. Tentative plan was for discharge to prison facility today but apparently beds are not available and patient has uncertain discharge plans at this point. Patient continues to work with physical therapy making progress with ambulation. Physical Exam Vital Signs: Temp Pulse Resp BP Pulse Ox 36.8 C 89 18 143/69 H 95 06/25/19 04:13 06/25/19 04:13 06/25/19 04:13 06/25/19 04:13 06/25/19 04:13 Intake & Output 06/24/19 06/25/19 06/26/19 06:59 06:59 06:59 Intake Total 2334 1318 Output Total 1450 1450 Balance 884 -132 Weight 80.4 kg General appearance: PRESENT: no acute distress Head exam: PRESENT: normocephalic Respiratory exam: PRESENT: unlabored Cardiovascular exam: PRESENT: RRR Pulses: PRESENT: +1 pedal pulses bilateral GI/Abdominal exam: PRESENT: soft Rectal exam: PRESENT: deferred Musculoskeletal exam: PRESENT: other - Right hip dressing clean dry and intact from the operating room. Leg lengths equal. Distal neurovascular examination is intact. Results Laboratory Results: 06/25/19 05:09 06/23/19 06:14 06/25/19 05:09 WBC 9.2 RBC 3.81 Hgb 12.0 Hct 34.6 L MCV 91 MCH 31.6 MCHC 34.7 RDW 14.0 Plt Count 215 Impressions: Pelvis X-Ray 06/22/19 11:42 IMPRESSION: 1. Uncomplicated right ORTIZ with expected immediate postoperative findings. 2. Focal area of cortical thickening along the medial aspect of the femoral stem of the left ORTIZ that could represent a periprosthetic fracture. Status: Imported from PACS Assessment & Plan - Diagnosis (1) Arthritis of right hip Is this a current diagnosis for this admission?: Yes Plan: Making progress with physical therapy. Awaiting prison facility placement. - Time Time Spent with patient: 15-24 minutes Anticipated discharge: SNF Within: when bed available
[2019-06-25] MEDS: SERTRALINE HCL 50 MG TABLET PO SCH (09:35)
[2019-06-25] MEDS: SENNOSIDES/DOCUSATE 8.6-50 MG 1 EACH TABLET PO SCH (09:36)
[2019-06-25] MEDS: ASPIRIN 81 MG TABLET, ENT COATED PO SCH (09:36)
[2019-06-25] MEDS: PRENATAL VITAMIN W DHA CAPSULE PO SCH (09:36)
[2019-06-25] MEDS: LISINOPRIL 10 MG TABLET PO SCH (09:37)
[2019-06-25] MEDS: AMLODIPINE BESYLATE 10 MG TABLET PO SCH (09:37)
[2019-06-25] MEDS: METOPROLOL TARTRATE 25 MG TABLET PO SCH (09:38)
[2019-06-25] MEDS: ALLOPURINOL 300 MG TABLET PO SCH (09:43)
[2019-06-25] MEDS: BUPROPION HCL 75 MG TABLET PO SCH (10:10)
[2019-06-25] MEDS: ACETAMINOPHEN 325 MG TABLET PO PRN (10:20)
[2019-06-25 11:34] VITALS: BP 132/63
--- NOTE | 2019-06-25 12:08 | PDOC TRANSFER SUMMARY ---
Impression - Admit/DC Date/PCP Admission Date/Primary Care Provider: 06/22/19 08:02 LARRY MOYA Discharge Date: 06/25/19 - Discharge Diagnosis (1) Arthritis of right hip Is this a current diagnosis for this admission?: Yes - Additional Information Resuscitation Status: Full Code Discharge Diet: Regular Discharge Activity: Balance Activity w/Rest, No Driving, No tub bath Referrals: [facility] [Outside] CAROL RAY MD [ACTIVE STAFF] - 07/02/19 10:15 am Home Medications: Allopurinol [Zyloprim 300 mg Tablet] 150 mg PO DAILY 12/20/13 Lisinopril 20 mg PO QAM 12/20/13 Metoprolol Tartrate [Lopressor 25 mg Tablet] 12.5 mg PO Q12 12/20/13 Amlodipine Besylate [Norvasc 5 mg Tablet] 10 mg PO DAILY 07/06/15 Butalb/Acetaminophen/Caffeine [Fioricet (50-325-40 mg) Tablet] 1 tab PO Q4HP PRN 07/06/15 Multivitamin [Daily Multiple Vitamin] 1 each PO QAM 07/06/15 Zolpidem Tartrate [Ambien] 10 mg PO HSP PRN 07/06/15 Acetaminophen [Tylenol Arthritis] 650 mg PO DAILYP PRN 06/15/19 Bupropion HCl [Wellbutrin 100 mg Tablet] 150 mg PO BID 06/15/19 Docusate Sodium [Colace] 100 mg PO DAILYP PRN 06/15/19 L.acidoph,Paracasei, B.lactis [Probiotic] 1 each PO DAILY 06/15/19 Oxycodone HCl/Acetaminophen [Percocet 7.5-325 mg Tablet] 7.5 - 325 mg PO TIDP PRN 06/15/19 Sertraline HCl [Zoloft 50 mg Tablet] 50 mg PO DAILY 06/15/19 Simvastatin [Zocor 10 mg Tablet] 20 mg PO DAILY 06/15/19 Inulin/Chromium Picolinate [Fiber Gummies] 1 each PO DAILY 06/22/19 History of Present Illiness History of Present Illness: BETHANY JOHNSON is a 89 year old female 89 yo WF with progressive pain and functional disability secondary to R hip OA Hospital Course Hospital Course: uncomlicated hip replacement followed by slow functional recovery Physical Exam Vital Signs: Temp Pulse Resp BP Pulse Ox 37.1 C 72 17 132/63 H 96 06/25/19 11:03 06/25/19 11:03 06/25/19 11:03 06/25/19 11:03 06/25/19 11:03 Intake & Output 06/24/19 06/25/19 06/26/19 06:59 06:59 06:59 Intake Total 2334 1318 Output Total 7750 1551 Balance 884 -233 Weight 80.4 kg 82.3 kg General appearance: PRESENT: no acute distress Head exam: PRESENT: normocephalic Respiratory exam: PRESENT: unlabored Cardiovascular exam: PRESENT: RRR Pulses: PRESENT: +1 pedal pulses bilateral Musculoskeletal exam: PRESENT: other - r hip dressing clean and dry Neurological exam: PRESENT: alert, awake, oriented to person, oriented to place, oriented to time, oriented to situation. ABSENT: motor sensory deficit Psychiatric exam: PRESENT: appropriate affect, normal mood. ABSENT: homicidal ideation, suicidal ideation Skin exam: PRESENT: dry, intact, warm. ABSENT: cyanosis, rash Results Laboratory Results: WBC 9.2 10^3/uL (4.0-10.5) 06/25/19 05:09 RBC 3.81 10^6/uL (3.72-5.28) 06/25/19 05:09 Hgb 12.0 g/dL (12.0-15.5) 06/25/19 05:09 Hct 34.6 % (36.0-47.0) L 06/25/19 05:09 MCV 91 fl (80-97) 06/25/19 05:09 MCH 31.6 pg (27.0-33.4) 06/25/19 05:09 MCHC 34.7 g/dL (32.0-36.0) 06/25/19 05:09 RDW 14.0 % (11.5-14.0) 06/25/19 05:09 Plt Count 215 10^3/uL (150-450) 06/25/19 05:09 Sodium 139.4 mmol/L (137-145) 06/23/19 06:14 Potassium 3.9 mmol/L (3.6-5.0) 06/23/19 06:14 Chloride 106 mmol/L (98-107) 06/23/19 06:14 Carbon Dioxide 25 mmol/L (22-30) 06/23/19 06:14 Anion Gap 8 (5-19) 06/23/19 06:14 BUN 13 mg/dL (7-20) 06/23/19 06:14 Creatinine 0.83 mg/dL (0.52-1.25) 06/23/19 06:14 Est GFR ( Amer) > 60 (>60) 06/23/19 06:14 Est GFR (MDRD) Non-Af > 60 (>60) 06/23/19 06:14 Glucose 110 mg/dL (75-110) 06/23/19 06:14 Calcium 8.5 mg/dL (8.4-10.2) 06/23/19 06:14 Blood Type O POSITIVE 06/22/19 08:40 Antibody Screen NEGATIVE 06/22/19 08:40 Impressions: Pelvis X-Ray 06/22/19 11:42 IMPRESSION: 1. Uncomplicated right ORTIZ with expected immediate postoperative findings. 2. Focal area of cortical thickening along the medial aspect of the femoral stem of the left ORTIZ that could represent a periprosthetic fracture. Plan Plan of Treatment: WBAT with PT Stroke Is this a Stroke Patient?: No Stroke Pt being discharged on Anti-thrombolytic therapy?: Yes Acute Heart Failure - Is this a Heart Failure Patient?: No
== END 2019-06-25 15:30 | DRG 470 ==
LOC: INOR 08:02 → 4S 13:03
PROVIDERS: ADMIT Orthopaedic Surgery; ATTEND Orthopaedic Surgery
PROC: 0SR902A Replacement of Right Hip Joint with Metal on Polyethylene Synthetic Substitute, Uncemented, Open Approach (ICD-10-PCS; principal; 2019-06-22 10:00)
DX: M16.11 Unilateral primary osteoarthritis, right hip (principal); E78.5 Hyperlipidemia, unspecified; I10 Essential (primary) hypertension; M10.9 Gout, unspecified; G47.00 Insomnia, unspecified; F32.9 Major depressive disorder, single episode, unspecified; F41.9 Anxiety disorder, unspecified; G47.30 Sleep apnea, unspecified; Z96.642 Presence of left artificial hip joint; Z79.899 Other long term (current) drug therapy
CPT/HCPCS: 01214; 36415; 72170; 80048; 84132; 85027; 86850; 86900; 86901; 88304; 88311; 94799; C1776; C9290; J0690; J1741; J2250; J2405; J2704; J3010; J3370; J3490; J7050; J7060